=== PATIENT | female | born 1955 | race African-American/Black ===

== ENCOUNTER → 2017-05-17 | Outpatient (CLI) | payer BC ==
[~2017-05-17] MED LIST: FLAX SEED OIL1000 MG PO; TOPROL XL PO; ZESTORETIC 10/11 TAB PO
--- NOTE | ~2017-05-17 | US77 ---
[facility] A Service of [facility] & [facility] RADIOLOGY TEXT RESULTS PATIENT: SUMAN HOLLOWAY LOCATION: [facility] : 57 UNIT #: [id number] AGE: [address]: RANDALL LEGER MD SEX: F ORDER DR: [id number] [facility] [address] [place], [place] [address] [id number] O MR#: [id number] Acc #: [id number] NAME: SUMAN HOLLOWAY : 1955 SEX: F STUDY DATE/TIME: 05/17/2017 12:18 UNIT: [facility] ROOM: STUDY DESCRIPTION: US Kidney Bilateral Complete Attending Physician: Randall Leger M.D. Referring Physician: Randall Leger M.D. Ordering Physician: Randall Leger M.D. Primary Care Physician: Randall Leger M.D. MEDICAL IMAGING REPORT This report is preliminary unless electronic signature is present EXAM Renal ultrasound, bilateral, complete, 05/17/2017. HISTORY Benign essential hypertension for several years, and family history of kidney disease. FINDINGS The right kidney measures 9 cm while the left kidney measures 10.1 cm in longitudinal dimensions. There is no evidence of hydronephrosis or nephrolithiasis. There is a 4.2 cm cyst on the left kidney. No solid mass lesions are identified. There is normal renal cortical echogenicity. Images of the bladder are normal. IMPRESSION 1. Left renal cyst. Otherwise, negative renal ultrasound. 2. Images of the bladder are normal. Dictated by... Kirby Tay M.D. THIS IS AN ELECTRONICALLY VERIFIED REPORT Kirby Tay M.D. at 05/18/2017 6:31 AM ERIC/tammy TD: 05/17/2017 22:54 JOB #: [id number] MEDICAL IMAGING REPORT Page 1 of 1 COPY
== END | disposition home or self-care (01) ==
LOC: CGUS 05-13 13:30
DX: I10 Essential (primary) hypertension (principal); F32.9 Major depressive disorder, single episode, unspecified; E66.9 Obesity, unspecified; N28.1 Cyst of kidney, acquired
CPT/HCPCS: 76770